=== PATIENT | male | born 1965 | race Caucasian/White ===

== ENCOUNTER 2016-09-12 09:26 | Day surgery (SDC) | payer MEDICARE ==
[2016-09-06 12:52] LABS: HEMOGLOBIN 13.7 g/dL (13.5-17.0); HGB HCT DIFFERENCE 0.1; MEAN CORPUSCULAR HEMOGLOBIN 29.7 pg (27.0-33.4); MEAN CORPUSCULAR HGB CONC 33.4 g/dL (32.0-36.0); MEAN CORPUSCULAR VOLUME 89 fl (80-97); RED CELL DISTRIBUTION WIDTH 13.9 % (11.5-14.0); WHITE BLOOD COUNT 5.7 10^3/uL (4.0-10.5)
[2016-09-06 12:58] LABS: PARTIAL THROMBOPLASTIN TIME 37.6 SEC (23.5-35.8)
[2016-09-06 12:59] LABS: APPEARANCE,URINE SLIGHTLY-CLOUDY; BILIRUBIN,URINE SMALL (NEGATIVE); GLUCOSE, URINE NEGATIVE (NEGATIVE); KETONES,URINE NEGATIVE (NEGATIVE); LEUKOCYTE ESTERASE,URINE NEGATIVE (NEGATIVE); NITRITE,URINE NEGATIVE (NEGATIVE); PROTEIN,URINE NEGATIVE (NEGATIVE); URINE SPECIFIC GRAVITY 1.025
[~2016-09-12 09:26] MED LIST: CEFAZOLIN 1 GM/D5W RTU 1 GM/50 ML RTUPB IV PRN; LACTATED RINGERS 1000 ML IV PRN; LIDOCAINE 0.5% INJ-PF (5 MG/ML) 50 ML SDV SUBCUT PRN
[2016-09-12] MEDS ORDERED: LIDOCAINE 1% INJ-PF (10 MG/ML) 30 ML SDV ONE (09:27)
[2016-09-12] MEDS ORDERED: SODIUM BICARBONATE 8.4% INJ 50 MEQ/50 ML DISP.SYRIN ONE (09:27)
[2016-09-12] MEDS ORDERED: BUPIVACAINE HCL 0.25% /EPINEPHRINE INJ/PF 30 ML SDV ONE (09:27)
[2016-09-12] MEDS ORDERED: FAMOTIDINE INJ/PF 20 MG/2 ML SDV IV ONE (10:44)
[2016-09-12] MEDS ORDERED: METOCLOPRAMIDE HCL INJ/PF 10 MG/2 ML SDV ONE (10:44)
[2016-09-12] MEDS ORDERED: SCOPOLAMINE HYDROBROMIDE 1.5 MG PATCH.TD72 ONE (10:45)
[2016-09-12] MEDS ORDERED: CLINDAMYCIN 600 MG/D5W RTU 600 MG/50 ML RTUPB IV ONE (11:15)
[2016-09-12] MEDS ORDERED: FENTANYL CITRATE INJ/PF 100 MCG/2 ML AMPUL ONE (11:25)
[2016-09-12] MEDS ORDERED: ONDANSETRON HCL INJ/PF 4 MG/2 ML SDV ONE (11:25)
[2016-09-12] MEDS ORDERED: PROPOFOL INJ 200 MG/20 ML VIAL IV ONE (11:25)
[2016-09-12] MEDS ORDERED: DEXAMETHASONE SOD PHOSPHATE INJ 4 MG/1 ML VIAL ONE (11:25)
[2016-09-12] MEDS ORDERED: MORPHINE SULFATE 10 MG/ML INJ ONE (11:25)
[2016-09-12] MEDS ORDERED: MIDAZOLAM 2 MG/2 ML INJ ONE (11:25)
[2016-09-12] MEDS ORDERED: FENTANYL CITRATE INJ/PF 100 MCG/2 ML AMPUL IV PRN ×3 (12:02)
[2016-09-12] MEDS ORDERED: PROMETHAZINE HCL INJ 25 MG/1 ML VIAL IV PRN ×2 (12:02)
[2016-09-12] MEDS ORDERED: MEPERIDINE HCL/PF INJ 25 MG/1 ML DISP.SYRIN IV PRN (12:02)
[2016-09-12] MEDS ORDERED: DIPHENHYDRAMINE HCL 50 MG/ML VIAL IV PRN (12:02)
[2016-09-12] MEDS ORDERED: MORPHINE SULFATE 10 MG/ML INJ IV PRN (12:02)
[2016-09-12] MEDS ORDERED: OXYCODONE-ACETAMINOPHEN 5-325 MG TABLET PO PRN ×3 (12:02→13:23)
[2016-09-12] MEDS ORDERED: CLINDAMYCIN PHOSPHATE INJ 300 MG/2 ML SDV ONE (12:50)
--- NOTE | 2016-09-12 13:03 | OPERATIVE REPORT E ---
Operative Report NAME: FIFI ALLEN : 1965 AGE: 50Y DATE OF SURGERY: ROOM: PREOPERATIVE DIAGNOSIS: End of battery life intrathecal programmable infusion pump. POSTOPERATIVE DIAGNOSIS: End of battery life intrathecal programmable infusion pump. OPERATION: Removal and reimplantation of new [employer] 20ML re-programmable intrathecal infusion pump. COMPLICATIONS: None. SURGEON: RUSLAN JIMENEZ M.D. LOCK AND DAM OPERATOR: HARSH LLOYD M.D. ANESTHESIA: Monitored anesthesia care. BLOOD LOSS: Minimal. SPECIMENS: None. PROCEDURE NOTE: After obtaining informed consent, advising the patient of the risks and benefits, including serious neurological injury, exacerbation of pain, bleeding and infection, allergic reaction, and , he was taken to the operating room and placed comfortably in the supine position. He was prepped with Chlorhexidine with appropriate drying time followed by appropriate draping. At the selected surgical site immediately over the pump in the line with the prior surgical scar for a pump implantation, the skin was anesthetized with 1% lidocaine with bicarb, followed by 0.25% bupivacaine with epinephrine. Sharp and blunt dissection was then performed down to the pump with electrocautery for hemostasis as necessary. The pump was then delivered from the pocket. It was disconnected from the catheter without difficulty, removing a single silk tie. The catheter was then aspirated with free-flowing cerebrospinal fluid; 3 mL were removed and discarded. A new pump had been set for prime and delivered to the table. The saline was removed. The exiting hydromorphone from the old pump was removed, 30 mL, and inserted into the new pump, and programming was initiated for priming. The pump was then connected to the existing nipple connector for the intrathecal catheter and secured with 2-0 Mersilene ties. The pocket was then undermined at its edges to allow easier insertion of the new pump. Anesthesia was obtained with local anesthetic as necessary. The new pump was then placed without difficulty into the pocket. Copious irrigation was performed. The pump pocket was then sutured with running continuous 3-0 Polysorb. A second layer of inverted vertical mattress sutures using 3-0 Polysorb was performed, followed by davina and additional irrigation. The skin was then sealed with Dermabond cement, followed by Telfa front-sponged dressing. Patient was then reprogrammed for the pump at the existing rate with a priming bolus for the pump and the catheter. He was then taken to the PACU for further postoperative care and monitoring. DICTATING PHYSICIAN: RUSLAN JIMENEZ M.D. [id number] [facility]#: [id number] ID: [id number] JOB#: [id number] ACCT: [id number] cc:Jayjay FRAGA M.D. >
[2016-09-12] MEDS ORDERED: ONDANSETRON HCL INJ/PF 4 MG/2 ML SDV IV PRN (13:24)
[2016-09-12 14:53] VITALS: BP 104/62
== END 2016-09-12 14:45 | disposition home or self-care (01) ==
LOC: OROUT 09:26
PROVIDERS: ATTEND Pain Medicine Interventional Pain Medicine
PROC: 0JH80VZ Insertion of Infusion Pump into Abdomen Subcutaneous Tissue and Fascia, Open Approach (ICD-10-PCS; principal; 2016-09-12 11:30)
DX: G89.4 Chronic pain syndrome (principal); M96.1 Postlaminectomy syndrome, not elsewhere classified; M54.16 Radiculopathy, lumbar region; Z45.1 Encounter for adjustment and management of infusion pump; M19.90 Unspecified osteoarthritis, unspecified site; R73.03 Prediabetes; J45.909 Unspecified asthma, uncomplicated; I10 Essential (primary) hypertension; M06.9 Rheumatoid arthritis, unspecified; E78.5 Hyperlipidemia, unspecified; F32.9 Major depressive disorder, single episode, unspecified; Z86.14 Personal history of Methicillin resistant Staphylococcus aureus infection; Z79.84 Long term (current) use of oral hypoglycemic drugs; Z79.899 Other long term (current) drug therapy; Z79.01 Long term (current) use of anticoagulants; Z01.818 Encounter for other preprocedural examination
CPT/HCPCS: 62362; 36415; 82962; 85027; 85610; 85730; 81001; C1772; J2250; J3490 ×3; J0690; J1100; J3010; J2765; J2270; J2405; J2704; S0028; 300